=== PATIENT | male | born 1990 | race Caucasian/White ===

== ENCOUNTER 2025-04-09 19:36 | Emergency (ER) | payer SELFPAY ==
[~2025-04-09] VITALS: Ht 167.6 cm; Wt 100.0 kg
[2025-04-09 19:40] VITALS: TEMP 37.2; O2SAT 96
[2025-04-09] MEDS: KETOROLAC 30MG/ML VIAL IM ONE (20:33)
[2025-04-09 22:45] VITALS: BP 133/59; PULSE 73; RESP 12; O2SAT 99
== END 2025-04-09 22:51 | disposition home or self-care (01) ==
LOC: ER 19:36
DX: R51.9 Headache, unspecified (principal); M54.2 Cervicalgia; F20.9 Schizophrenia, unspecified
CPT/HCPCS: 99285; 70450; 73030; 72125; 72131; 96372; J1885